=== PATIENT | female | born 2005 | race Caucasian/White ===

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

== ENCOUNTER → 2024-01-30 | Outpatient (CLI) | payer BC ==
--- NOTE | 2024-01-30 14:57 | US ---
EXAMINATION TYPE: US transvaginal DATE OF EXAM: 01/30/2024 COMPARISON: CT 2021 CLINICAL INDICATION: Female, 18 years old with history of R10.2 N94.6; TECHNIQUE: Transvaginal exam only per physician order FINDINGS: Date of LMP: 01/08/2024 EXAM MEASUREMENTS: Uterus: 6.7 x 2.9 x 3.9 cm Endometrial Stripe: 0.5 cm Right Ovary: 3.6 x 1.8 x 2.2 cm Left Ovary: 2.2 x 1.5 x 1.5 cm 1. Uterus: anteverted 2. Endometrium: wnl 3. Right Ovary: multiple follicles 4. Left Ovary: multiple follicles 5. Bilateral Adnexa: small amount of free fluid bilateral adnexa 6. Posterior cul-de-sac: wnl Unremarkable anteverted uterus without focal lesion identified. Endometrium is within normal limits. Both ovaries appear unremarkable. Small amount of free fluid in the bilateral adnexa which is likely physiologic. IMPRESSION: No ultrasound evidence for acute pelvic process [facility], , 01/30/2024 2:54 PM
== END | disposition home or self-care (01) ==
LOC: RADUSWWP 14:11
PROVIDERS: ATTEND Family Medicine
DX: R10.2 Pelvic and perineal pain (principal); N94.6 Dysmenorrhea, unspecified
CPT/HCPCS: 76830